=== PATIENT | male | born 1980 | race Caucasian/White ===

== ENCOUNTER 2023-10-17 10:50 | Outpatient (AMB) | payer OTHER, SELFPAY ==
[2023-10-17 11:06] VITALS: BP 128/90; PULSE 75; RESP 14; TEMP 36.6; O2SAT 99; BMI 34.2
--- NOTE | 2023-10-17 11:06 | A.OFFPC_ITS ---
Vital Signs 10/17/23 11:06 Height 6 ft 1.75 in Weight 264 lb 6 oz BMI 34.2 BP 128/90 H Blood Pressure Location Rt brachial Position Sitting Respiration 14 Pulse 75 Pulse Source Pulse Oximeter Temp 97.8 F Temp Source Temporal Artery Scan Pulse Oximetry (%) 99 Oxygen Delivery Method Room Air Intake Visit Reasons: New patient appt Intake Note: Patient would like to get a sleep apnea test done and is concerned that it will interfere with CD[employer] license. Hoop Puncher Required: No Accompanied by: Self / Same As Patient Allergies No Known Allergies Allergy (Verified 10/17/23 11:29) Medication List - Last Reconciled 10/17/23 by Letty Giang, ACADEMIC AFFAIRS SPECIALIST- albuterol 90 mcg/actuation mcg inhalation buprenorphine-naloxone 12-3 mg (Suboxone) 1 film buccal Q24H cholecalciferol (vitamin D3) 10 mcg PO DAILY testosterone undecanoate mg PO Tobacco use date assessed: 10/17/23 Dental Screening Dental Screen Date: 10/17/23 Did you have a dental visit in the last 12 months?: No Did you have a dental problem in the last 6 months where you did not have access to dental care?: No Was dental information given to patient?: Patient has dentist HPI HPI Comments History of Present Illness Details 43 y/o M with mild intermittent asthma, seasonal allergies, former smoker, quit 15 years ago, low testosterone, obesity Social: 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 No records Has concerns for sleep apnea. Snoring, witnessed apnea by . 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 Has occasional constipation that he treats with MiraLax with positive effect. Asthma - exercise and allergy induced; doing well on OSIRIS Noted Low T during infertility work up. Taking oral supplements. Interested in Uro referral. Unable to conceive children. Takes a vitamin-D supplement to treat headaches with positive effect. The Dayhoit Sleepiness Scale The Dayhoit Sleepiness Scale is widely used in the field of sleep medicine as a subjective measure of a patient's sleepiness. The test is a list of eight situations in which you rate your tendency to become sleepy on a scale of 0, no chance of dozing, to 3, high chance of dozing. When you finish the test, add up the values of your responses. Your total score is based on a scale of 0 to 24. The scale estimates whether you are experiencing excessive sleepiness that possibly requires medical attention. How Sleepy Are You? How likely are you to doze off or fall asleep in the following situations? You should rate your chances of dozing off, not just feeling tired. Even if you have not done some of these things recently try to determine how they would have affected you. For each situation, decide whether or not you would have: ? No chance of dozing =0 ? Slight chance of dozing =1 ? Moderate chance of dozing =2 ? High chance of dozing =3 Write down the number corresponding to your choice in the right hand column. Total your score below. Situation Chance of Dozing Sitting and reading 3 Watching TV 3 Sitting inactive in a public place (e.g., a theater or a meeting) 1 As a passenger in a car for an hour without a break 3 Lying down to rest in the afternoon when circumstances permit 3 Sitting and talking to someone 0 Sitting quietly after a lunch without alcohol 3 In a car, while stopped for a few minutes in traffic 0 Total Score = 16 Analyze Your Score Interpretation: 0-7:It is unlikely that you are abnormal ly sleepy. 8-9:You have an average amount of daytim e sleepiness. 10-15:You may be excessively sleepy depe nding on the situation. You may want to consider seeking medical attention. 16-24:You are excessively sleepy and marcia uld consider seeking medical attention. Reference: Laisha DICKENS. A new method for measuring daytime sleepiness: The Dayhoit Sleepiness Scale. Sleep 1991; 14(6):540-5. 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 1. Little interest or pleasure in doing things: not at all 2. Feeling down, depressed, or hopeless: not at all 3. Trouble falling or staying asleep, or sleeping too much: not at all 4. Feeling tired or having little energy: not at all 5. Poor appetite or overeating: not at all 6. Feeling bad about yourself - or that you are a failure or have let yourself or your family down: not at all 7. Trouble concentrating on things, such as reading the newspaper or watching television: not at all 8. Moving or speaking so slowly that other people could have noticed. Or the opposite - being so fidgety or restless that you have been moving around a lot more than usual: not at all 9. Thoughts that you would be better off or of hurting yourself in some way: not at all Total score: 0 Depression Screening Interpretation: Negative Depression Screening Done: Yes 42327 - PHQ-9 Billing: Yes Source: Developed by Drs. Eben Aguilar, Luz Elena Perez, Sarthak Cooney and colleagues, with an educational odilon from [employer]. Thrive Questionnaire Date Thrive assessed: 10/17/23 I am a: Patient What is your living situation today?: I have a steady place to live Within the past 12 months, did the food you bought not last and you didn't have the money to get more?: Never true Within the past 12 months, did you worry whether your food would run out before you got money to buy more?: Never true Do you have trouble paying for medicines?: No Do you have trouble getting transportation to medical appointments?: No Do you have trouble paying your heating and electricity bill?: No Do you have trouble taking care of your child, family member or friend?: No Do you have trouble with day-to-day activities such as bathing, preparing meals, shopping, managing finances, etc.?: No Are you currently unemployed and looking for a job?: No Are you interested in more education?: No Please select the resources that you would like help with: None Currently or been in a relationship where the following occur: no concerns reported THRIVE Score: 0 AUDIT C Alcohol Use Questionnaire (AUDIT-C) 1. How often do you have a drink containing alcohol?: Never 3. How often do you have six or more drinks on one occasion?: Never Total Score: 0 Score Reviewed/Action Taken: Yes MIRNA-7 AMB Questionnaire MIRNA-7 Date MIRNA - 7 assessed: 10/17/23 Feeling nervous, anxious, or on edge: 0 = Not at all Not being able to stop or control worryin = Not at all Worrying too much about different things: 0 = Not at all Trouble relaxin = Not at all Being so restless that it is hard to sit still: 0 = Not at all Becoming easily annoyed or irritable: 0 = Not at all Feeling afraid as if something awful might happen: 0 = Not at all Total MIRNA-7 score (0-4 normal; 5-9 mild; 10-14 moderate; 15-21 severe): 0 Source: Developed by Drs. Eben Aguilar, Luz Elena Perez, Sarthak Cooney and colleagues, with an educational odilon from [employer]. MIRNA-7 Assessment Billing MIRNA-7 Assessment Tool: MIRNA-7 Assessment 42984 ACT Questionnaire In the past 4 weeks, how much of the time did your asthma keep you from getting as much done at work, school or at home?: A little of the time During the past 4 weeks, how often have you had shortness of breath?: 1-2 times a week During the past 4 weeks, how often did your asthma symptoms wake you up at night or earlier than usual in the morning?: Not at all During the past 4 weeks, how often have you had to use your rescue inhaler or nebulizer medication?: Not at all How would you rate your asthma control during the past 4 weeks?: Completely controlled ACT Interpretation: Negative Score: 23 Review of Systems Const Details: Constitutional: Denies fever. Skin: Denies rash. Eye: Denies eye pain. ENMT: Denies sore throat and nasal congestion. Respiratory: Denies shortness of breath and cough. Gastrointestinal: Denies nausea, vomiting or abdominal pain. Cardiovascular: Denies chest pain and syncope. Genitourinary: Denies dysuria. Musculoskeletal: Denies back pain and extremity pain. Neurologic: Denies headaches, confusion, and weakness. Psychiatric: Denies suicidal thoughts and substance abuse. Allergy/ Immunologic: Denies impaired immunity. Physical exam (Primary Care) Vital Signs: Last Vital Signs Temp 97.8 F 10/17/23 11:06 Pulse 75 10/17/23 11:06 Resp 14 10/17/23 11:06 BP 128/90 H 10/17/23 11:06 Pulse Ox 99 10/17/23 11:06 Oxygen Delivery Method Room Air 10/17/23 11:06 BMI result Body Mass Index 34.2 BMI Assessment/Plan discussion: High BMI High, discussed plan: lifestyle Tobacco/Smoking Status: Tobacco use Status Tobacco use date assessed 10/17/23 10/17/23 11:15 Patient Tobacco Use Status Former Tobacco user 10/17/23 11:15 e-Cigarette/Vaping Use Never Used 10/17/23 11:15 PHQ-9: PHQ-9 Score PHQ-9: Total score 0 10/17/23 11:15 Depression Screening Interpretation: Negative Thrive Assessment: Date of Thrive Assessment Date Thrive assessed 10/17/23 10/17/23 11:15 Currently or been in a relationship where the following occur: no concerns reported Advance Care Planning discussion: Exists, not on file Date of discussion: 10/17/23 Who was present: Self Forms completed: Health Care Proxy Time spent: 1-15 minutes, not on file Actual minutes spent: 3 Const Other: General: Well developed, well nourished, in no acute distress. Appears stated age. Head: Normocephalic, atraumatic. Eyes: Pupils are equal, round and reactive to light and accommodation. Conjunctivae are clear. Vision grossly normal. Ears: TMs clear AU, EACS WNL Nose: Patent, without discharge. Mouth: There are no ulcers or lesions noted. No inflammation, no post nasal drip, no plaques nor exudates. Mild erythema in posterior pharynx Neck: Supple, no adenopathy or thyromegaly. Lungs: Clear to auscultation bilaterally. No rales, rhonchi or wheeze noted. Good air flow in all feliz. Heart: Regular rate and rhythm. No murmurs, click, rubs or gallops are noted. Abdomen: Bowel sounds present in all quadrants. The abdomen is soft, nontender, with no masses or organomegaly noted. No hernias are noted. Musculoskeletal: Joints are nontender, without swelling, redness, or effusions. Range of motion is observed to be normal. Pulses: Peripheral pulses are equal and palpable bilaterally. Extremities: No clubbing, cyanosis nor edema is noted. Hairless from half-way down lower leg to toes bilat Neurologic: Gait and station normal. Cranial Nerves 2-12 intact. Motor strength grossly symmetrical and intact. No sensory loss. Balance normal. Skin: No rashes, ulcers, or lesions noted. Turgor is good. Skin color is good. Hair and nails are without abnormalities. Psych: Normal eye contact, affect and mood appropriate, and normal interactions. Patient is alert and appropriate to context. Assessment and Plan Assessment & Plan (1) Encounter for general adult medical examination without abnormal findings: Code(s): Z00.00 - Encounter for general adult medical examination without abnormal findings (2) Witnessed episode of apnea: Comment: Check a sleep study. Code(s): R06.81 - Apnea, not elsewhere classified (3) Laboratory exam ordered as part of routine general medical examination: Code(s): Z00.00 - Encounter for general adult medical examination without abnormal findings (4) Hypotestosteronemia in male: Comment: Taking oral testosterone supplements. Refer to urology for further evaluation and treatment. Code(s): E29.1 - Testicular hypofunction (5) BMI 34.0-34.9,adult: Comment: Lifestyle modifications Code(s): Z68.34 - Body mass index [BMI] 34.0-34.9, adult (6) Mild intermittent asthma in adult without complication: Comment: Managed well with p.r.n. Osiris use only. Continue. Code(s): J45.20 - Mild intermittent asthma, uncomplicated (7) Buprenorphine dependence: Comment: Managed by [facility]. Code(s): F11.20 - Opioid dependence, uncomplicated Orders: Orders RT home sleep study Today R06.81 - Apnea, not elsewhere classified, R40.0 - Somnolence TSH reflex Free T4 Today Z00.00 - Encounter for general adult medical examination without abnormal findings Vitamin D 1,25 dihydroxy Today Z00.00 - Encounter for general adult medical examination without abnormal findings PSA,Total (Free>4and<10) Today Z00.00 - Encounter for general adult medical examination without abnormal findings Vitamin B12 and Folate Today Z00.00 - Encounter for general adult medical examination without abnormal findings Hemoglobin A1c Today Z00.00 - Encounter for general adult medical examination without abnormal findings Comprehensive Met. Panel Today Z00.00 - Encounter for general adult medical examination without abnormal findings LDL Cholesterol Direct Today Z00.00 - Encounter for general adult medical examination without abnormal findings Microalbumin, Random (w Creat) Today Z00.00 - Encounter for general adult medical examination without abnormal findings Referrals Urology Referral E29.1 - Testicular hypofunction Patient Instructions: Return to office in 4-6 weeks via telehealth to discuss her lab results as well as her sleep study results. Sooner should you need anything. Please go to your local pharmacy to get your Tdap Health screenings for men ages 40 to 64 You should visit your health care provider regularly, even if you feel healthy. The purpose of these visits is to: Screen for medical issues Assess your risk for future medical problems Encourage a healthy lifestyle Update vaccinations and other preventive care services Help you get to know your provider in case of an illness Information Even if you feel fine, you should still see your provider for regular checkups. These visits can help you avoid problems in the future. For example, the only way to find out if you have high blood pressure is to have it checked regularly. High blood sugar and high cholesterol level also may not have any symptoms in the early stages. Simple blood tests can check for these conditions. There are specific times when you should see your provider or receive specific health screenings. The [place] Preventive Services Task Force publishes a list of recommended screenings. Below are screening guidelines for men ages 40 to 64. BLOOD PRESSURE SCREENING Have your blood pressure checked at least once every year. Watch for blood pressure screenings in your area. Ask your provider if you can stop in to have your blood pressure checked. Ask your provider if you need your blood pressure checked more often if: You have diabetes, heart disease, kidney problems, or are overweight or have certain other health conditions You have a first-degree relative with high blood pressure You are Black Your blood pressure top number is from 120 to 129 mm Hg, or the bottom number is from 70 to 79 mm Hg If the top number is 130 mm Hg or greater or the bottom number is 80 mm Hg or greater, this is considered stage 1 hypertension. Schedule an appointment with your provider to learn how you can lower your blood pressure. Effects of age on blood pressure CHOLESTEROL SCREENING Cholesterol screening should begin at age 35 for men with no known risk factors for coronary heart disease. Repeat cholesterol screening should take place: Every 5 years for men with normal cholesterol levels More often if changes occur in lifestyle (including weight gain and diet) More often if you have diabetes, heart disease, kidney problems, or certain other conditions COLORECTAL CANCER SCREENING If you are under age 45, talk to your provider about getting screened. You may need to be screened if you have a strong family history of colon cancer or polyps. Screening may also be considered if you have risk factors such as a history of inflammatory bowel disease or polyps. If you are age 45 to 75, you should be screened for colorectal cancer. There are several screening tests available: A stool-based fecal occult blood (gFOBT) or fecal immunochemical test (FIT) every year A stool sDNA test every 1 to 3 years Flexible sigmoidoscopy every 5 years or every 10 years with stool testing FIT done every year CT colonography (virtual colonoscopy) every 5 years Colonoscopy every 10 years You may need a colonoscopy more often if you have risk factors for colorectal cancer, such as: Ulcerative colitis A personal or family history of colorectal cancer A history of growths in your colon called adenomatous polyps DENTAL EXAM Go to the dentist once or twice every year for an exam and cleaning. Your dentist will evaluate if you have a need for more frequent visits. DIABETES SCREENING All adults who do not have risk factors for diabetes should be screened starting at age 35 and repeated every 3 years. If you have other risk factors for diabetes, such as a first degree relative with diabetes, overweight or obesity, high blood pressure, prediabetes, or a history of heart disease, you may be tested more often. If you are overweight and have other risk factors, such as high blood pressure and are planning to become , screening is recommended. EYE EXAM Have an eye exam every 2 to 4 years ages 40 to 54 and every 1 to 3 years ages 55 to 64. Your provider may recommend more frequent eye exams if you have vision problems or glaucoma risk. Have an eye exam that includes an examination of your retina (back of your eye) at least every year if you have diabetes. IMMUNIZATIONS Commonly needed vaccines include: Flu shot: get one every year COVID-19 vaccine: ask your provider what is best for you Tetanus-diphtheria and acellular pertussis (Tdap) vaccine: have as one of your tetanus-diphtheria vaccines if you did not receive it as an adolescent Tetanus-diphtheria: have a booster (or Tdap) every 10 years Varicella vaccine: receive 2 doses if you never had chickenpox or the varicella vaccine and were born in 1980 or after Hepatitis B vaccine: receive 2, 3, or 4 doses, depending on your exact circumstances, if you did not receive these as a child or adolescent, until age 59 Shingles (herpes zoster) vaccine: at or after age 50 Ask your provider if you should receive other immunizations, especially if you have certain medical conditions, such as diabetes or are at increased risk for some diseases such as pneumonia. INFECTIOUS DISEASE SCREENING Screening for hepatitis C: all adults ages 18 to 79 should get a one-time test for hepatitis C. Screening for human immunodeficiency virus (HIV): all people ages 15 to 65 should get a one-time test for HIV. Depending on your lifestyle and medical history, you may need to be screened for infections such as syphilis, chlamydia, and other infections. LUNG CANCER SCREENING You should have an annual screening for lung cancer with low-dose computed tomography (LDCT) if: You are age 50 to 80 years AND You have a 20 pack-year smoking history AND You currently smoke or have quit within the past 15 years OSTEOPOROSIS SCREENING If you are age 50 to 64 and have risk factors for osteoporosis, you should discuss screening with your provider. Risk factors can include long-term steroid use, low body weight, smoking, heavy alcohol use, having a fracture after age 50, or a family history of hip fracture or osteoporosis. Osteoporosis PHYSICAL EXAM All adults should visit their provider from time to time, even if they are healthy. The purpose of these visits is to: Screen for diseases Assess risk of future medical problems Encourage a healthy lifestyle Update vaccinations and other preventive care services Maintain a relationship with a provider in case of an illness Your height, weight, and body mass index (BMI) should be checked at every exam. During your exam, your provider may ask you about: Depression and anxiety Diet and exercise Alcohol and tobacco use Safety, such as use of seat belts and smoke detectors Your medicines and risk for interactions PROSTATE CANCER SCREENING If you're 55 through 69 years old, before having the test, talk to your provider about the pros and cons of having a PSA test. Ask about: Whether screening decreases your chance of dying from prostate cancer. Whether there is any harm from prostate cancer screening, such as side effects from testing or overtreatment of cancer when discovered. Whether you have a higher risk of prostate cancer than others. If you are age 55 or younger, screening is not generally recommended. You should talk with your provider about if you have a higher risk for prostate cancer. Risk factors include: Having a family history of prostate cancer (especially a brother or father) Being If you choose to be tested, the PSA blood test is repeated over time (yearly or less often), though the best frequency is not known. Prostate examinations are no longer routinely done on men with no symptoms. Prostate cancer SKIN EXAM Your provider may check your skin for signs of skin cancer, especially if you're at high risk. People at high risk include those who have had skin cancer before, have close relatives with skin cancer, or have a weakened immune system. TESTICULAR EXAM The [place] Preventive Services Task Force (USPSTF) now recommends against performing testicular self-exams. Doing testicular self-exams has been shown to have little to no benefit. Coding Level of Care Code New Pt Prev Care 40-64y(68436) Diagnoses Encounter for general adult medical examination without abnormal findings Z00.00 Witnessed episode of apnea R06.81 Laboratory exam ordered as part of routine general medical examination Z00.00 Hypotestosteronemia in male E29.1 BMI 34.0-34.9,adult Z68.34 Mild intermittent asthma in adult without complication J45.20 Buprenorphine dependence F11.20 Additional Codes MIRNA-7 Assessment Billing - MIRNA-7 Assessment Tool: MIRNA-7 Assessment 93653 ([id number]) Vital Signs *Quality* - Advance Care Planning discussion: Exists, not on file ([id number]) Vital Signs *Quality* - Time spent: 1-15 minutes, not on file ([id number])
== END 2023-10-17 11:57 | disposition home or self-care (01) ==
PROVIDERS: PCP Nurse Practitioner Family; Visit Provider Nurse Practitioner Family
DX: Z00.00 Encounter for general adult medical examination without abnormal findings (principal); F11.20 Opioid dependence, uncomplicated; R06.81 Apnea, not elsewhere classified; E29.1 Testicular hypofunction; Z68.34 Body mass index [BMI] 34.0-34.9, adult; J45.20 Mild intermittent asthma, uncomplicated
CPT/HCPCS: 1124F; 99386

== ENCOUNTER 2023-10-17 12:03 | Outpatient (REF) | payer OTHER, SELFPAY ==
[2023-10-17 15:01] LABS: Estimated Average Glucose 100 mg/dL; Hemoglobin A1c % 5.1 % (<6.0)
[2023-10-17 15:22] LABS: Creatinine Urine 173.91 mg/dL; Microalbum/Creatinine Ratio Ur 6.3 ug/mg cr (<30)
[2023-10-17 15:27] LABS: Alanine Aminotransferase 127 U/L (0-40); Albumin Level 4.4 g/dL (3.5-5.0); Alkaline Phosphatase 88 U/L (39-117); Anion Gap 13 (12-20); Aspartate Amino Transferase 56 U/L (5-37); Bilirubin Total 0.4 mg/dL (0.0-1.0); Blood Urea Nitrogen 17 mg/dL (9-16); Calcium 9.8 mg/dL (8.4-10.2); Carbon Dioxide 27 mmol/L (22-29); Chloride 104 mmol/L (96-108); Estimated Glomerular Filt Rate > 60; Glucose Random 101 mg/dL (60-115); Sodium 140 mmol/L (135-145); Total Protein 7.9 g/dL (6.5-8.0)
[2023-10-17 15:38] LABS: PSA,Total (Free>4and<10) 0.52 ng/mL (0.00-4.00)
[2023-10-17 15:45] LABS: TSH reflex Free T4 1.81 uIU/mL (0.32-4.0)
[2023-10-17 15:51] LABS: Folate 6.7 ng/mL (> or = 4.0); Vitamin B12 1059 pg/mL (200-900)
[2023-10-18 19:34] LABS: LDL Cholesterol Direct 122 mg/dL (<100)
[2023-10-22 02:43] LABS: VITAMIN D (1,25 OH) D3 42 pg/mL; Vit D (1,25-Dihydroxy) Total 42 pg/mL (18-72); Vitamin D (1,25 OH) D2 <8 pg/mL
== END 2023-10-17 12:04 | disposition home or self-care (01) ==
LOC: HO.WFDLDS 12:03
PROVIDERS: Visit Provider Nurse Practitioner Family
DX: Z00.00 Encounter for general adult medical examination without abnormal findings (principal); Z12.5 Encounter for screening for malignant neoplasm of prostate
CPT/HCPCS: 36415; 80053; 82043; 82570; 82607; 82652; 82746; 83036; 83721; 84153; 84443

== ENCOUNTER 2023-12-03 13:43 | Outpatient (AMB) | payer OTHER, SELFPAY ==
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
[2023-12-03 13:48] VITALS: BP 108/80; PULSE 71; RESP 16; TEMP 36.8; O2SAT 97; BMI 33.7
== END 2023-12-03 14:13 | disposition home or self-care (01) ==
PROVIDERS: PCP Nurse Practitioner Family; Visit Provider Nurse Practitioner Family
DX: M62.830 Muscle spasm of back (principal); Z04.2 Encounter for examination and observation following work accident
CPT/HCPCS: 99213

== ENCOUNTER → 2023-12-04 07:59 | Outpatient (REF) | payer OTHER, SELFPAY | LOC: HO.SL 07:59 | PROVIDERS: PCP Nurse Practitioner Family; Visit Provider Nurse Practitioner Family | DX: G47.33 Obstructive sleep apnea (adult) (pediatric) (principal); R40.0 Somnolence | CPT/HCPCS: 95806 ==

== ENCOUNTER → 2023-12-05 08:17 | Outpatient (BNV) | payer OTHER, SELFPAY | PROVIDERS: PCP Nurse Practitioner Family; Visit Provider Internal Medicine | DX: G47.33 Obstructive sleep apnea (adult) (pediatric) (principal) | CPT/HCPCS: 95806 ==

== ENCOUNTER 2024-01-22 16:21 | Outpatient (AMB) | payer OTHER, SELFPAY ==
--- NOTE | 2024-01-22 16:04 | MHC.PC.OV ---
Intake Visit Reasons: going over sleep results Allergies No Known Allergies Allergy (Verified 01/22/24 16:08) Medication List - Last Reconciled 01/22/24 by Letty Giang, TEXTILE SCIENCE TECHNICIAN- albuterol 90 mcg/actuation mcg inhalation buprenorphine-naloxone 12-3 mg (Suboxone) 1 film buccal Q24H cholecalciferol (vitamin D3) 10 mcg PO DAILY lidocaine 4% (Aspercreme (lidocaine)) 1 patch topical DAILY PRN magnesium glycinate 100 mg PO DAILY PRN naproxen (EC-Naproxen) 500 mg PO BID testosterone undecanoate mg PO Tobacco use date assessed: 10/17/23 Dental Screening Dental Screen Date: 10/17/23 HPI HPI Comments History of Present Illness Details Telehealth follow up for this 43 y/o M to discuss a sleep study results. SLEEP STUDY WAS DONE 12/05/2023 the impression reads total sleep time was only 136 minutes at all of the sleep was in supine position. There is evidence of moderately severe obstructive sleep apnea with a total sleep time AHI 25. There was only a medical all degree of nocturnal hypoxemia with an average O2 sat 94% O2 sat below 88% for 2 minutes. The recommendations are to consider starting the patient on CPAP therapy with auto PAP mode and pressure setting of 6-20 cm, follow up closely by monitoring for compliance and benefits. Weight reduction and sleep hygiene education This was discussed with him in detail today. This sleep study was done to evaluate witnessed apnea, snoring, waking with daily headaches and fatigue. CPAP therapy was reviewed with him. He is aware that he needs to wear the device daily. He is aware of remote monitoring and the need for medical follow up. Plan: Start CPAP , [facility]. Asked patient to follow up with us in 1 week if he does not hear anything. Sleep hygiene and weight reduction encouraged Return to the office in April for routine follow up, sooner if needed. We will need to check a titration study to see if he has had improvements once he starts CPAP therapy. This is not been ordered yet but can be ordered at the next visit if needed. This note is constructed using voice recognition software. While every effort has been made to ensure accuracy in financial service representative, still errors may have been included Sometimes, these errors may affect the content or meaning of the given sentence . 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 Eben Aguilar, Luz Elena Perez, Sarthak Cooney and colleagues, with an educational odilon from [employer]. Physical exam (Primary Care) Tobacco/Smoking Status: Tobacco use Status Tobacco use date assessed 10/17/23 12/03/23 13:44 Patient Tobacco Use Status Former Tobacco user 12/03/23 13:44 e-Cigarette/Vaping Use Never Used 12/03/23 13:44 Thrive Assessment: Date of Thrive Assessment Date Thrive assessed 10/17/23 12/03/23 13:44 Telehealth Telehealth Telehealth Platform: Telephone Location of provider rendering services: practice address Location of patient: address on file Patient Identification confirmed using: Name, : Yes Telehealth method: voice only Patient verbally consented to treatment: Yes Patient verbally consented to billing insurance company: Yes Patient informed of any privacy concerns related to visit: Yes Minutes spent on Phone/Video with Pt.: 15 Assessment and Plan Assessment & Plan (1) JOSESITO on CPAP: Comment: 11/2023 mod/severe Code(s): G47.33 - Obstructive sleep apnea (adult) (pediatric) Medications: New CPAP (CPAP Machine/Device) As directed 1 ea 0RF Coding Level of Care Code Tele Est Pt Level 2 (58614) Diagnoses JOSESITO on CPAP G47.33
== END 2024-01-22 16:24 | disposition home or self-care (01) ==
LOC: HO.HMGFM 16:21
PROVIDERS: PCP Nurse Practitioner Family; Visit Provider Nurse Practitioner Family
DX: G47.33 Obstructive sleep apnea (adult) (pediatric) (principal)
CPT/HCPCS: 99442

== ENCOUNTER 2024-06-01 15:31 | Outpatient (AMB) | payer OTHER, SELFPAY ==
--- NOTE | 2024-06-01 16:24 | A.OFFPC_ITS ---
Intake Visit Reasons: follow up on cpap Allergies No Known Allergies Allergy (Verified 06/01/24 16:24) Medication List - Last Reconciled 06/01/24 by Letty Giang, [facility] albuterol 90 mcg/actuation mcg inhalation buprenorphine-naloxone 12-3 mg (Suboxone) 1 film buccal Q24H cholecalciferol (vitamin D3) 10 mcg PO DAILY CPAP (CPAP Machine/Device) As directed lidocaine 4% (Aspercreme (lidocaine)) 1 patch topical DAILY PRN magnesium glycinate 100 mg PO DAILY PRN naproxen (EC-Naproxen) 500 mg PO BID testosterone undecanoate mg PO Tobacco use date assessed: 06/01/24 Dental Screening Dental Screen Date: 06/01/24 Did you have a dental visit in the last 12 months?: Yes Did you have a dental problem in the last 6 months where you did not have access to dental care?: No Was dental information given to patient?: Patient has dentist HPI HPI Comments History of Present Illness Details Telehealth visits today: The patient is a 43-year-old male presenting with obstructive sleep apnea for a follow-up on his CPAP (Continuous Positive Airway Pressure) therapy management. Initially prescribed CPAP therapy showed significant improvement with a reduction from an event rate of 52 per hour to between 4 and 6. The patient reports an average usage of 6 hours per night currently, with events around 15 per hour recently. He noticed a decrease in symptoms such as morning headaches when the CPAP is used consistently. The patient has recently obtained a new CPAP face mask, but reports muffled snoring persists. Despite this, he notices better energy levels and fewer daytime headaches. He did not fu with SLeep med. Snoring persists with the new mask even though his reports it is now muffled. The patient acknowledges a tendency to sometimes go to sleep without wearing the CPAP mask, addressing compliance issues directly affecting his treatment. Review of Systems - Respiratory: Reports improvement in da ytime energy levels with CPAP use; muffled snoring persists. - Neurological: Reports an improvement i n morning headaches with consistent CPAP use. Results SLEEP STUDY WAS DONE 12/05/2023 the impression reads total sleep time was only 136 minutes at all of the sleep was in supine position. There is evidence of moderately severe obstructive sleep apnea with a total sleep time AHI 25. There was only a medical all degree of nocturnal hypoxemia with an average O2 sat 94% O2 sat below 88% for 2 minutes. The recommendations are to consider starting the patient on CPAP therapy with auto PAP mode and pressure setting of 6-20 cm, follow up closely by monitoring for compliance and benefits. Weight reduction and sleep hygiene education Discussion Notes During the visit, I discussed the ongoing management of the patient's obstructive sleep apnea with CPAP therapy. We reviewed the importance of consistent use of the CPAP machine throughout the night to ensure adequate oxygen saturation and symptom relief. I explained the need for a CPAP titration study at the sleep lab to optimize settings, given the recent increase in hourly events and persistent snoring. I confirmed that this study involves an overnight stay to assess and modify CPAP pressure settings effectively. The necessity of ongoing compliance was emphasized, along with the health implications of untreated sleep apnea. I reinforced the benefits of the procedure and clarified that it is not mandatory, but recommended, highlighting the improved function with continued CPAP use. Plan - A CPAP titration study is to be arrang ed to optimize machine settings and evaluate nocturnal hypoxemia. - Monitoring of compliance and ongoing s noring with current CPAP therapy, including potential adjustments. Patient was informed and verbally consented to the use of an ambient scribe for clinic note documentation during this visit. Patient Instructions - Use the CPAP machine every night for o ptimal results. - Await a call to schedule the CPAP titr ation study. - Report any issues with the current set up or equipment to the office via the patient portal. - Contact the office directly if there a re any concerns or if you do not receive follow-up for the sleep study. - Monitor for any changes in symptoms an d continue using the CPAP for the prescribed duration each night. FU once results of titration study complete, sooner PRN This note is constructed using voice recognition software. While every effort has been made to ensure accuracy in restaurant kitchen manager, still errors may have been included Sometimes, these errors may affect the content or meaning of the given sentence . Total time spent caring for the patient today was 15 minutes. 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 Eben Aguilar, Luz Elena Perez, Sarthak Cooney and colleagues, with an educational odilon from [employer]. Physical exam (Primary Care) Tobacco/Smoking Status: Tobacco use Status Tobacco use date assessed 10/17/23 01/22/24 16:07 Patient Tobacco Use Status Former Tobacco user 01/22/24 16:07 e-Cigarette/Vaping Use Never Used 01/22/24 16:07 Thrive Assessment: Date of Thrive Assessment Date Thrive assessed 10/17/23 01/22/24 16:07 Telehealth Telehealth Telehealth Platform: Authy Location of provider rendering services: practice address Location of patient: address on file Patient Identification confirmed using: Name, : Yes Telehealth method: voice only Patient verbally consented to treatment: No Patient verbally consented to billing insurance company: Yes Patient informed of any privacy concerns related to visit: No Minutes spent on Phone/Video with Pt.: 10 Coding Level of Care Code Tele Est Pt Level 2 (59957) Complex EM visit Add On G2211 Diagnoses JOSESITO on CPAP G47.33 Assessment & Plan Assessment & Plan (1) JOSESITO on CPAP: Comment: 11/2023 mod/severe SLEEP STUDY WAS DONE 12/05/2023 the impression reads total sleep time was only 136 minutes at all of the sleep was in supine position. There is evidence of moderately severe obstructive sleep apnea with a total sleep time AHI 25. There was only a medical all degree of nocturnal hypoxemia with an average O2 sat 94% O2 sat below 88% for 2 minutes. The recommendations are to consider starting the patient on CPAP therapy with auto PAP mode and pressure setting of 6-20 cm, follow up closely by monitoring for compliance and benefits. Weight reduction and sleep hygiene education Code(s): G47.33 - Obstructive sleep apnea (adult) (pediatric) Category: Medical Plan . Orders: Orders RT PSG in-lab sleep titration Today G47.33 - Obstructive sleep apnea (adult) (pediatric)
== END 2024-06-01 17:05 | disposition home or self-care (01) ==
LOC: HO.HMCFM 15:31
PROVIDERS: PCP Nurse Practitioner Family; Visit Provider Nurse Practitioner Family
DX: G47.33 Obstructive sleep apnea (adult) (pediatric) (principal)

== ENCOUNTER 2024-10-07 08:25 | Outpatient (AMB) | payer OTHER, SELFPAY ==
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
[2024-10-07 08:33] VITALS: BP 118/70; PULSE 63; RESP 12; TEMP 36.2; O2SAT 98; BMI 34.6
--- OUTSIDE RECORDS SUMMARY | 2024-10-07 09:48 | XMS_ITS | Encounter Summary ---
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 Coach Name Role Phone Jack Moody MD Primary Care Provider [phone] Encounter Details Date Type Department Care Team Description 06/12/2018 Telephone Adult Medicine [address] [address] Jack Moody MD [address] [place] [id number] Social History Tobacco Use Types Packs/Day Years Used Date Smoking Tobacco: Former Cigarettes 1 19 Q uit: 06/20/2016 Smokeless Tobacco: Never Comments:Quit x 1.5 years ag o Alcohol Use Standard Drinks/Week Comments No 0 (1 standard drink = 0.6 oz pur e alcohol) Sex Assigned at Date Recorded Not on file documented as of this encounter Plan of Treatment Not on file documented as of this encounter Visit Diagnoses Not on filedocumented in this encounter Care Teams Womens Volleyball Coach Relationship Specialty Start Date End Date Jack Moody MD [address] [place] [id number] PCP - General Internal Medicine 08/30/17 documented as of this encounter
== END 2024-10-07 08:59 | disposition home or self-care (01) ==
LOC: HO.HMCFM 08:26
PROVIDERS: PCP Nurse Practitioner Family; Visit Provider Nurse Practitioner Family
DX: M54.50 Low back pain, unspecified (principal); G89.29 Other chronic pain; Z04.2 Encounter for examination and observation following work accident; Z02.6 Encounter for examination for insurance purposes

== ENCOUNTER → 2024-10-07 08:25 | Outpatient (BNVA) | payer OTHER, SELFPAY | PROVIDERS: PCP Nurse Practitioner Family; Visit Provider Nurse Practitioner Family | DX: M54.50 Low back pain, unspecified (principal); G89.29 Other chronic pain; M54.9 Dorsalgia, unspecified; Z02.6 Encounter for examination for insurance purposes | CPT/HCPCS: 96127; 99212 ==